=== PATIENT | male | born 1975 | race Caucasian/White ===

== ENCOUNTER → 2020-11-26 09:16 | Outpatient (CLI) | payer OTHER, SELFPAY ==
--- NOTE | 2020-11-26 09:20 | DI.ECHO.S_ITS ---
[place] [facility]---------+ [facility] +---------+ : : [address] : [address] : : : : [id number] : : : : Phone: [phone]+ Echocardiogram Report + + :Name: JUDE TAMEZ Study Date: 11/26/2020 Height: 70 in : :[facility] ReadingLocation: Weight: 163 lb : : Gender: Male BSA: 1.9 m2 : :: 1975 Age: 45 yrs BP: 121/77 mmHg: :Reason For Study: ENCOUNTER FOR GENERAL ADULT MEDICAL : :EXAMINIATION : :Ordering Physician: VINCENT, : :CALE Performed By: Octavia Arnold : :Referring: CALE KAUR : + + Interpretation Summary The left ventricle is normal in size and wall thickness. The ejection fraction is estimated to be 60-65%. Diastolic parameters suggest probable normal left ventricular diastolic function and normal filling pressures. The right ventricle is normal in size and function. Pulmonary artery pressures cannot be estimated because of the lack of a measurable TR jet velocity but the IVC suggests a CVP of around 15 mmHg. Both atria are normal in size. There is no significant valvular heart disease. The aortic arch is mildly enlarged. Procedure: A two-dimensional transthoracic echocardiogram with color flow and Doppler was performed. The study quality was technically adequate. There is no prior echocardiogram noted for this patient. The patient was in sinus bradycardia with heart rates between 47-64 bpm during the exam. Left Ventricle: The left ventricle is normal in size and wall thickness. The ejection fraction is estimated to be 60-65%. Diastolic parameters suggest probable normal left ventricular diastolic function and normal filling pressures. Right Ventricle: The right ventricle is normal in size and function. Atria: Both atria are normal in size. There is no Doppler evidence for an interatrial shunt. Mitral Valve: The mitral valve is normal in structure and function. There is no mitral regurgitation noted. Aortic Valve: The aortic valve is trileaflet. The aortic valve opens well. There is no aortic valve stenosis. No aortic regurgitation is present. Tricuspid Valve: The tricuspid valve is normal in structure and function. There is trace tricuspid regurgitation. Pulmonary artery pressures cannot be estimated because of the lack of a measurable TR jet velocity but the IVC suggests a CVP of around 15 mmHg. Pulmonic Valve: The pulmonic valve leaflets are thin and pliable; valve motion is normal. There is no pulmonic valvular regurgitation. There is no significant valvular heart disease. Great Vessels: The aortic root is normal size. The aortic arch is mildly enlarged. The dimensions of the ascending aorta are normal. The IVC is dilated (diameter is greater than 2.1 cm) and it collapses less than 50% with a sniff. This suggests a high right atrial pressure of 15 mm Hg. Pericardium/ Pleura There is no pericardial effusion. There is no pleural effusion. MMode/2D Measurements & Calculations LVIDd: 4.7 cm LVOT diam: 2.3 cm LVIDs: 2.9 cm Ao root diam: 3.3 cm FS: 37.6 % asc Aorta Diam: 3.1 cm EPSS: 0.12 cm Ao Arch Diam (Prox Trans): 3.5 cm IVSd: 0.66 cm LVPWd: 0.82 cm LV khan. diameter/BSA (cm/m^2): 2.5 LV sys. diameter/BSA (cm/m^2): 1.5 LA A2 area: 12.8 cm2 RA long axis: 4.6 cm LA A4 area: 15.0 cm2 RA area: 14.7 cm2 LA length (vol): 4.7 cm RA vol: 40.2 ml LA vol: 34.6 ml RA : 21.0 ml/m2 LA vol index: 18.1 ml/m2 IVC diam: 2.2 cm RVD1 (basal): 2.9 cm TAPSE: 1.8 cm Doppler Measurements & Calculations Ao V2 max: 93.3 cm/sec LVOT Max Kaleb: 81.1 cm/sec Ao V2 mean: 64.5 cm/sec LV V1 max P.6 mmHg Ao max P.5 mmHg LV V1 VTI: 17.3 cm Ao mean P.9 mmHg HAI(I,D): 3.6 cm2 Ao V2 VTI: 19.5 cm HAI(V,D): 3.5 cm2 sev ratio: 0.89 HAI indexed to BSA (cm^2/m^2): 1.9 MV E max kaleb: 54.7 cm/sec PA V2 max: 61.0 cm/sec MV A max kaleb: 56.2 cm/sec PA V2 mean: 42.0 cm/sec MV E/A: 0.97 PA mean P.82 mmHg Med Peak E' Kaleb: 9.7 cm/sec PA pr(Accel): 25.9 mmHg E/E' med: 5.6 Lat Peak E' Kaleb: 11.0 cm/sec E/E' lat: 5.0 E/e' average: 5.3 MV dec time: 0.23 sec SV(LVOT): 70.1 ml Reading Physician:04:28 PM
== END ==
PROVIDERS: Referring Provider Physician Assistant; Visit Provider Physician Assistant
DX: Z00.00 Encounter for general adult medical examination without abnormal findings (principal); I77.89 Other specified disorders of arteries and arterioles
CPT/HCPCS: 93306

== ENCOUNTER → 2021-09-17 12:38 | Outpatient (CLI) | payer OTHER, SELFPAY ==
[2021-09-17 13:14] LABS: COVID19 -Nasal RAPID Negative (Negative)
== END ==
PROVIDERS: PCP Family Medicine; Visit Provider Physician Assistant
DX: Z20.822 Contact with and (suspected) exposure to COVID-19 (principal)
CPT/HCPCS: 87635

== ENCOUNTER → 2022-01-22 15:18 | Outpatient (CLI) | payer OTHER, SELFPAY ==
[2022-01-22 16:04] LABS: COVID19 -Nasal RAPID Negative (Negative)
== END ==
PROVIDERS: PCP Family Medicine; Visit Provider Family Medicine Sleep Medicine
DX: Z20.822 Contact with and (suspected) exposure to COVID-19 (principal)
CPT/HCPCS: 87635; C9803

== ENCOUNTER 2022-01-23 12:13 | Day surgery (SDC) | payer OTHER, SELFPAY ==
--- NOTE | 2022-01-23 11:25 | PM.HP.1 ---
History of Present Illness History of Present Illness Date Patient Seen: 01/23/22 Chief complaint: SDC Narrative: 46 year old male comes in today for consideration of a screening colonoscopy. There have been no lower GI symptoms suggesting disease such as change in bowel habits, bleeding, abdominal pain or anemia. There's been no family history of colon cancer or colon polyps. Overall health issues have been stable, including no major cardiac events for at least 6 weeks. PCP: Dr. Valdivia Past medical history: Healthy Past surgical history: Triple hernia surgery Family history: Noncontributory Social history: , retired . 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 Three children. 1-3 servings of [employer] daily. Meds Home Medications and Allergies Home Medications Medication Instructions Recorded Confirmed Type multivitamin 1 tab PO DAILY 01/23/22 01/23/22 History Allergies Allergy/AdvReac Type Severity Reaction Status Date / Time No Known Drug Allergies Allergy Verified 01/23/22 12:43 Review of Systems Review of Systems Narrative: All remaining ROS were reviewed and negative except as addressed. Exam Narrative Exam Narrative: GENERAL: Alert and oriented, appearing stated age and in no acute distress. HEENT: Head normocephalic/atraumatic. Extraocular movements intact. LUNGS: Clear to ausculation bilaterally, no wheezes, rhonchi or rales. CV: Normal S1 and S2 with regular rate and rhythm, no audible murmurs, rubs or gallops. ABDOMEN: Soft, non-tender, non-distended, no organomegaly. Positive bowel sounds. EXTREMITIES: No clubbing, cyanosis, or edema. NEURO: Cranial nerves II through XII grossly intact, no focal deficits. PSYCH: Alert and oriented x 3. SKIN: No concerning lesions. Assessment & Plan Assessment & Plan narrative: 1. Screening for colon cancer Plan for colonoscopy. The nature and character of the procedure as well as anticipated results were discussed. The possibility of not completing the procedure was also discussed. Possible complications including aspiration pneumonia, bleeding, perforation and reaction to medications either for sedation or preparation and missed lesions were discussed. Questions were answered and proceeding to the colonoscopy was elected. Informed consent signed. I sincerely appreciate the referral allowing me to participate in this patient's care. Please contact me with any questions or concerns.
--- NOTE | 2022-01-23 11:36 | PM.OP.COLON ---
Operative Date/Time/Diagnoses Date of procedure: 01/23/22 Procedure Notes SCOAP/Timeout: 1:49 p.m. Procedure in detail: ENDOSCOPIST: Nicolette Gudino MD Sedation RN: Celi Brito RN Sedation start time: 1:50 p.m. Sedation end time: 2:10 p.m. PROCEDURE: Colonoscopy INDICATIONS: 1. Screening for colon cancer MEDICATION: Levsin 0.125 mg sublingual, incremental doses of Versed and fentanyl until appropriate level sedation achieved. ASA CLASS: 1 CECAL WITHDRAWAL TIME: 6 minutes COMPLICATIONS: None. EXTENT OF PROCEDURE: Cecum. QUALITY OF PREP: Good with portions of liquid stool. PROCEDURE: Prior to insertion of the colonoscope, a digital rectal examination was accomplished with circumferential palpation of the distal rectal mucosa without significant findings being noted. The high-definition colonoscope was passed into the rectum in the usual fashion and advanced over to the cecum without difficulty. The ileocecal valve, appendiceal stoma, and medial wall all could be inspected and no abnormalities were seen. ASCENDING COLON: As the colonoscope was withdrawn, care was taken to expose and inspect the haustral folds and no abnormalities were seen. HEPATIC FLEXURE: Normal, no polyps, diverticula or other abnormalities. TRANSVERSE COLON: Normal, no polyps, diverticula or other abnormalities. DESCENDING COLON: Normal, no polyps, diverticula or other abnormalities. SIGMOID COLON: Normal, no polyps, diverticula or other abnormalities. RECTUM: Normal. J maneuver was produced. There was no significant perianal disease. The J maneuver was broken. The remainder of the rectum was inspected and there was no external hemorrhoid disease. The scope was withdrawn. IMPRESSION: 1. Normal colonoscopy PLAN: 1. Repeat colonoscopy in 10 years. The possibility of a missed lesion including a malignancy has been discussed with the patient previously. Potential alarm symptoms have been discussed and should be reported immediately.
[2022-01-23] MEDS: HYOSCYAMINE 0.125 MG TABLET PO (12:43)
[2022-01-23] MEDS: LACTATED RINGERS 1,000 ML 200 ML IV (12:44)
[2022-01-23 12:52] VITALS: BMI 23.6
[2022-01-23] MEDS: fentaNYL 250 MCG/5 ML INJ 200 MCG IV (13:57)
[2022-01-23] MEDS: MIDAZOLAM 5 MG/5 ML VIAL 7 MG IV (13:57)
[2022-01-23 14:14] VITALS: BP 108/71; PULSE 76; RESP 9; TEMP 36.7; O2SAT 95
[2022-01-23 14:19] VITALS: BP 115/71; PULSE 85; RESP 8; O2SAT 98
[2022-01-23 14:24] VITALS: BP 103/70; PULSE 68; RESP 9; O2SAT 99
[2022-01-23 14:29] VITALS: BP 111/71; PULSE 96; RESP 12; O2SAT 98
[2022-01-23 14:34] VITALS: BP 102/68; PULSE 87; RESP 12; TEMP 36.6; O2SAT 100
[2022-01-23 14:39] VITALS: BP 111/76; PULSE 60; RESP 12; TEMP 36.5; O2SAT 100
== END 2022-01-23 14:51 | disposition home or self-care (01) ==
PROVIDERS: PCP Family Medicine; Referring Provider Student in an Organized Health Care Education/Training Program; Visit Provider Student in an Organized Health Care Education/Training Program
PROC: 0DJD8ZZ Inspection of Lower Intestinal Tract, Via Natural or Artificial Opening Endoscopic (ICD-10-PCS; CPT 45378; principal; 2022-01-23 13:00)
DX: Z12.11 Encounter for screening for malignant neoplasm of colon (principal)
CPT/HCPCS: 45378; J2250; J3010

== ENCOUNTER 2023-04-04 13:09 | Emergency (ER) | payer OTHER, SELFPAY ==
[2023-04-04 13:37] VITALS: BP 129/84; PULSE 64; RESP 18; TEMP 36.7; O2SAT 99; BMI 25.1
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
[2023-04-04] MEDS: ACETAMINOPHEN 325 MG TABLET 975 MG PO (13:48)
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
== END 2023-04-04 14:37 | disposition home or self-care (01) ==
PROVIDERS: Emergency Provider Registered Nurse; PCP Family Medicine
DX: M54.6 Pain in thoracic spine (principal); V28.09XA Other motorcycle driver injured in noncollision transport accident in nontraffic accident, initial encounter
CPT/HCPCS: 71046; 71100; 99283

== ENCOUNTER → 2023-12-18 07:13 | Outpatient (CLI) | payer OTHER, SELFPAY ==
--- NOTE | 2023-12-18 07:15 | DI.MRI.S_ITS ---
PROCEDURE: MR ANKLE LT WO CON INDICATIONS: Strain of left Achilles tendon, initial encounter TECHNIQUE: Noncontrast sagittal T1 spin echo and T2 fast spin echo with fat saturation, axial proton density fast spin echo and T2 fast spin echo with fat saturation, coronal T1 spin echo and T2 fast spin echo with fat saturation through the ankle/hindfoot. COMPARISON: [facility], CR, XR ANKLE 3+ VIEWS LEFT, 12/15/2023, 15:51. FINDINGS: Image quality: Excellent. Bones and joints: No acute trabecular bone injury or fracture. No hindfoot coalitions. No osteochondral injuries of the talar dome. Mild soft tissue edema is seen surrounding the ankle and extending into the dorsum of the foot. Medial structures: The deltoid ligament and the spring ligament complex are intact. The posterior tibialis, flexor digitorum longus, and flexor hallucis longus tendons are intact. The posterior tibial neurovascular bundle appears normal within the tarsal tunnel, without extrinsic mass effect. Lateral structures: Remote prior sprain of the anterior talofibular ligament. The calcaneofibular and posterior talofibular ligaments are intact. Mild heterotopic calcification is seen along the distal syndesmotic ligament. Remote prior sprain of the anterior tibiofibular ligament. The posterior tibiofibular ligament is intact. The peroneus longus and brevis tendons demonstrate normal location and morphology. Small ganglion cyst arising from the lateral sinus tarsi measures 13 x 8 x 3 mm. Anterior structures: The tibialis anterior, extensor hallucis longus, and extensor digitorum longus tendons appear intact. The dorsal talonavicular ligament appears intact. Posterior and plantar structures: There is full-thickness tearing of the Achilles tendon approximately 7.5 cm from the distal insertion with minimal separation of torn tendon stumps. Plantaris tendon remains intact. There is surrounding soft tissue edema and fluid. The proximal plantar fascia is intact. No abductor digiti minimi muscle atrophy to suggest Fernandez neuropathy. IMPRESSION: 1. Complete tearing of the Achilles tendon approximately 7.5 cm from the distal insertion. There is minimal separation of torn tendon fibers. Surrounding edema and fluid are present. 2. Remote prior low-grade sprains of the anterior talofibular ligament and anterior tibiofibular ligament. 3. Small ganglion cyst at the lateral sinus tarsi measures up to 13 mm in maximum dimension. Approved by: Palomo Wade M.D. on 12/20/2023 at 10:17
== END ==
LOC: MRI 07:14
PROVIDERS: PCP Family Medicine; Referring Provider Orthopaedic Surgery Foot and Ankle Surgery; Visit Provider Orthopaedic Surgery Foot and Ankle Surgery
DX: S86.012A Strain of left Achilles tendon, initial encounter (principal); S93.432A Sprain of tibiofibular ligament of left ankle, initial encounter; S93.492A Sprain of other ligament of left ankle, initial encounter; M67.462 Ganglion, left knee; X58.XXXA Exposure to other specified factors, initial encounter
CPT/HCPCS: 73721